=== PATIENT | female | born 1940 | race African-American/Black ===

== ENCOUNTER 2018-12-28 21:05 | Emergency (ER) | payer MEDICARE | END 2018-12-28 21:55 | disposition home or self-care (01) | LOC: NAV ERS 21:05 | DX: S41.112D Laceration without foreign body of left upper arm, subsequent encounter (principal); I25.10 Atherosclerotic heart disease of native coronary artery without angina pectoris; E11.9 Type 2 diabetes mellitus without complications; K21.9 Gastro-esophageal reflux disease without esophagitis; D63.1 Anemia in chronic kidney disease; N18.9 Chronic kidney disease, unspecified; E78.5 Hyperlipidemia, unspecified; E78.00 Pure hypercholesterolemia, unspecified; M10.9 Gout, unspecified; J44.9 Chronic obstructive pulmonary disease, unspecified; I11.0 Hypertensive heart disease with heart failure; I50.9 Heart failure, unspecified; Z79.899 Other long term (current) drug therapy; Z79.51 Long term (current) use of inhaled steroids; Z79.01 Long term (current) use of anticoagulants ==

== ENCOUNTER 2019-10-30 15:23 | Emergency (ER) | payer MEDICARE ==
[2019-10-30 16:02] LABS: #Basophils 0.1 thou/uL (0.0-0.2); #Eosinphils 0.1 thou/uL (0.0-0.7); #Lymphocytes 1.1 thou/uL (1.20-3.40); #Monocytes 0.4 thou/uL (0.11-0.59); #Neutrophils 2.8 thou/uL (1.40-6.50); %Basophils 1.7 % (0.0-1.0); %Eosinophils 3.2 % (0.0-10.0); %Lymphocytes 23.6 % (21.0-51.0); %Monocytes 9.1 % (0.0-10.0); %Neutrophils 62.5 % (42.0-75.0); Hemoglobin 10.8 g/dL (12.0-16.0); Mean Corpuscular HGB CONC 31.2 g/dL (32.0-36.0); Mean Corpuscular Hemoglobin 29.5 pg (27.0-31.0); Mean Corpuscular Volume 94.6 fL (78.0-98.0); Mean Platelet Volume 7.9 fL (7.4-10.4); Platelet Count 168 thou/uL (130-400); RBC Distribution Width 14.1 % (11.5-14.5); Red Blood Cell (RBC) Count 3.68 mill/uL (4.20-5.40); White Blood Cell (WBC) Count 4.5 thou/uL (4.8-10.8)
[2019-10-30 16:08] LABS: ALT (SGPT) 7 U/L (8-55); AST (SGOT) 13 U/L (5-34); Albumin 3.8 g/dL (3.4-4.8); Alkaline Phosphatase 81 U/L (40-110); Anion Gap 13 mmol/L (10-20); BUN (Urea Nitrogen) 30 mg/dL (9.8-20.1); Bilirubin, Total 0.3 mg/dL (0.2-1.2); Calc. Creatinine Clearance 0 mL/min (70-130); Calcium 8.9 mg/dL (7.8-10.44); Carbon Dioxide 27 mmol/L (23-31); Chloride 98 mmol/L (98-107); Estimated GFR-MDRD 12; Globulin 2.4 g/dL (2.4-3.5); Glucose 245 mg/dL (83-110); Potassium 4.4 mmol/L (3.5-5.1); Protein, Total 6.2 g/dL (6.0-8.3); Sodium 134 mmol/L (136-145)
[2019-10-30 16:26] LABS: CKMB 0.9 ng/mL (0-6.6)
[2019-10-30] MEDS ORDERED: Aspirin Chewable 81 MG TAB ONE (16:50)
[2019-10-30] MEDS ORDERED: Sodium Chloride 0.9% 500 ML ONE (16:50)
== END 2019-10-30 17:40 | disposition home or self-care (01) ==
LOC: NAV ERS 15:23
DX: E86.0 Dehydration (principal); I13.2 Hypertensive heart and chronic kidney disease with heart failure and with stage 5 chronic kidney disease, or end stage renal disease; I50.9 Heart failure, unspecified; E11.22 Type 2 diabetes mellitus with diabetic chronic kidney disease; N18.6 End stage renal disease; I25.10 Atherosclerotic heart disease of native coronary artery without angina pectoris; K21.9 Gastro-esophageal reflux disease without esophagitis; E78.5 Hyperlipidemia, unspecified; E78.00 Pure hypercholesterolemia, unspecified; M10.9 Gout, unspecified; J44.9 Chronic obstructive pulmonary disease, unspecified; Z79.4 Long term (current) use of insulin; Z79.899 Other long term (current) drug therapy
CPT/HCPCS: 80053; 82553; 84484; 85025; 93005; 96360; J7030

== ENCOUNTER 2024-06-11 05:59 | Emergency (ER) | payer MEDICARE ==
[2024-06-11] MEDS ORDERED: Acetaminophen 500 MG TAB ONE (06:35)
[2024-06-11 06:41] LABS: ALT (SGPT) 7 U/L (Less than 34); AST (SGOT) 15 U/L (11-34); Albumin 3.6 g/dL (3.1-4.5); Alkaline Phosphatase 37 U/L (40-110); Anion Gap 18 mmol/L (10-20); BUN (Urea Nitrogen) 47 mg/dL (9.8-20.1); Bilirubin, Total 0.4 mg/dL (0.3-1.2); Calc. Creatinine Clearance 0 mL/min (70-130); Calcium 9.3 mg/dL (7.8-10.44); Carbon Dioxide 26 mmol/L (23-31); Chloride 95 mmol/L (98-107); Estimated GFR 4; Globulin 2.7 g/dL (2.4-3.5); Glucose 202 mg/dL (83-110); Potassium 4.5 mmol/L (3.5-5.1); Protein, Total 6.3 g/dL (5.8-8.1); Sodium 134 mmol/L (136-145)
[2024-06-11 06:43] LABS: #Basophils 0.1 thou/uL (0.0-0.2); #Eosinophils 0.1 thou/uL (0.0-0.7); #Lymphocytes 0.7 thou/uL (1.20-3.40); #Monocytes 0.2 thou/uL (0.11-0.59); #Neutrophils 1.4 thou/uL (1.40-6.50); %Basophils 2.1 % (0.0-1.0); %Lymphocytes 30.2 % (21.0-51.0); %Monocytes 9.5 % (0.0-10.0); %Neutrophils 55.3 % (42.0-75.0); Hematocrit 37.4 % (36.0-47.0); Hemoglobin 11.2 g/dL (12.0-16.0); Mean Corpuscular HGB CONC 29.9 g/dL (32.0-36.0); Mean Corpuscular Hemoglobin 25.6 pg (27.0-31.0); Mean Corpuscular Volume 85.6 fl (78.0-98.0); Mean Platelet Volume 7.7 fL (7.4-10.4); Platelet Count 112 10x3/uL (130-400); RBC Distribution Width 15.4 % (11.5-14.5); Red Blood Cell (RBC) Count 4.37 mill/uL (4.20-5.40); White Blood Cell (WBC) Count 2.5 10x3/uL (4.8-10.8)
== END 2024-06-11 07:25 | disposition home or self-care (01) ==
LOC: NAV ERS 05:59
DX: I13.2 Hypertensive heart and chronic kidney disease with heart failure and with stage 5 chronic kidney disease, or end stage renal disease (principal); E11.22 Type 2 diabetes mellitus with diabetic chronic kidney disease; N18.6 End stage renal disease; I50.9 Heart failure, unspecified; R51.9 Headache, unspecified; J44.9 Chronic obstructive pulmonary disease, unspecified; I48.91 Unspecified atrial fibrillation; Z99.2 Dependence on renal dialysis; Z79.01 Long term (current) use of anticoagulants; Z55.6 Problems related to health literacy; Z79.899 Other long term (current) drug therapy; Z79.4 Long term (current) use of insulin
CPT/HCPCS: 71045; 80053; 85025; 93005; 94760

== ENCOUNTER 2025-03-13 11:12 | Inpatient (IN) | payer MEDICARE ==
[2025-03-13] MEDS ORDERED: Bisacodyl 10 MG SUPP PR PRN (13:22)
[2025-03-13] MEDS ORDERED: Dextrose 50% Abboject 50 ML SYRINGE SLOW IVP PRN (13:52)
[2025-03-13] MEDS ORDERED: Glucagon 1 MG/ML KIT IM PRN (13:52)
[2025-03-13] MEDS: Cholecalciferol 1,000 UNITS (25 MCG) TAB PO SCH (20:37)
[2025-03-13] MEDS: Apixaban 2.5 MG TAB PO SCH (20:37)
[2025-03-13] MEDS: Senokot S 8.6-50 MG TAB PO SCH (20:38)
[2025-03-13] MEDS: Amiodarone 200 MG TAB PO SCH (20:39)
[2025-03-13] MEDS: Multivit, Therapeutic 1 TAB PO SCH (20:39)
[2025-03-13] MEDS: Nystatin Powder 15 GM BOT TOP SCH (20:40)
[2025-03-14 05:20] LABS: #Basophils 0.3 thou/uL (0.0-0.2); #Eosinophils 0.3 thou/uL (0.0-0.7); #Lymphocytes 0.7 thou/uL (1.20-3.40); #Monocytes 0.7 thou/uL (0.11-0.59); #Neutrophils 2.9 thou/uL (1.40-6.50); %Basophils 6.0 % (0.0-1.0); %Eosinophils 6.6 % (0.0-10.0); %Lymphocytes 14.5 % (21.0-51.0); %Monocytes 13.2 % (0.0-10.0); %Neutrophils 59.7 % (42.0-75.0); Hematocrit 31.6 % (36.0-47.0); Hemoglobin 9.8 g/dL (12.0-16.0); Mean Corpuscular Hemoglobin 24.8 pg (27.0-31.0); Mean Corpuscular Volume 80.2 fl (78.0-98.0); Platelet Count 224 10x3/uL (130-400); Red Blood Cell (RBC) Count 3.94 mill/uL (4.20-5.40); White Blood Cell (WBC) Count 4.9 10x3/uL (4.8-10.8)
[2025-03-14 05:28] LABS: ALT (SGPT) 10 U/L (Less than 34); AST (SGOT) 23 U/L (11-34); Albumin 2.6 g/dL (3.1-4.5); Alkaline Phosphatase 49 U/L (40-110); Anion Gap 17 mmol/L (10-20); BUN (Urea Nitrogen) 31 mg/dL (9.8-20.1); Bilirubin, Total 0.3 mg/dL (0.3-1.2); Calc. Creatinine Clearance 10 mL/min (70-130); Calcium 8.7 mg/dL (7.8-10.44); Carbon Dioxide 26 mmol/L (23-31); Chloride 96 mmol/L (98-107); Globulin 3.3 g/dL (2.4-3.5); Glucose 120 mg/dL (83-110); Potassium 4.7 mmol/L (3.5-5.1); Sodium 134 mmol/L (136-145)
[2025-03-14] MEDS: Ezetimibe 10 MG TAB PO SCH (08:40)
[2025-03-14] MEDS: NIFEdipine XL 60 MG ER.TAB PO SCH (08:42)
[2025-03-14] MEDS: Losartan 25 MG TAB PO SCH (08:42)
[2025-03-14] MEDS: Lantus 1000 UNITS/10 ML VIAL SC SCH (08:44)
[2025-03-14] MEDS: Pantoprazole 40 MG DR.TAB PO SCH (08:44)
[2025-03-15 21:02] VITALS: BMI 33.3
[2025-03-15] MEDS: Acetaminophen 325 MG TAB PO PRN (23:22)
[2025-03-16] MEDS: FLU (Fluad Triv) 25-26 (65UP)PF 45 MCG/0.5 ML Syringe IM ONE (10:01)
[2025-03-16] MEDS: Transdermal Patch Removal TOP SCH (21:43)
[2025-03-17 03:22] VITALS: BMI 33.6
[2025-03-17] MEDS ORDERED: NIFEdipine XL 60 MG ER.TAB PO SCH (08:52)
[2025-03-17] MEDS: NIFEdipine XL 90 MG ER.TAB PO SCH (09:10)
[2025-03-18 02:01] LABS: #Basophils 0.8 thou/uL (0.0-0.2); #Eosinophils 0.2 thou/uL (0.0-0.7); #Lymphocytes 0.8 thou/uL (1.20-3.40); #Monocytes 0.7 thou/uL (0.11-0.59); #Neutrophils 3.2 thou/uL (1.40-6.50); %Basophils 13.9 % (0.0-1.0); %Eosinophils 3.6 % (0.0-10.0); %Lymphocytes 14.6 % (21.0-51.0); %Monocytes 11.9 % (0.0-10.0); %Neutrophils 56.0 % (42.0-75.0); Hematocrit 27.7 % (36.0-47.0); Hemoglobin 8.2 g/dL (12.0-16.0); Mean Corpuscular Hemoglobin 23.8 pg (27.0-31.0); Mean Corpuscular Volume 80.3 fl (78.0-98.0); Platelet Count 206 10x3/uL (130-400); Red Blood Cell (RBC) Count 3.45 mill/uL (4.20-5.40); White Blood Cell (WBC) Count 5.7 10x3/uL (4.8-10.8)
[2025-03-18] MEDS: Mag-Al Plus 1200/1200/120 MG (30 mL) UDCUP PO SCH ×2 (02:08→05:22)
[2025-03-18 02:10] LABS: ALT (SGPT) 13 U/L (Less than 34); AST (SGOT) 22 U/L (11-34); Albumin 2.6 g/dL (3.1-4.5); Alkaline Phosphatase 43 U/L (40-110); Anion Gap 15 mmol/L (10-20); BUN (Urea Nitrogen) 52 mg/dL (9.8-20.1); Bilirubin, Total 0.3 mg/dL (0.3-1.2); Calc. Creatinine Clearance 8 mL/min (70-130); Calcium 8.5 mg/dL (7.8-10.44); Carbon Dioxide 27 mmol/L (23-31); Chloride 96 mmol/L (98-107); Globulin 3.1 g/dL (2.4-3.5); Glucose 152 mg/dL (83-110); Potassium 4.1 mmol/L (3.5-5.1); Sodium 134 mmol/L (136-145); Troponin I 0.021 ng/mL (< 0.028)
[2025-03-18 05:35] LABS: Troponin I 0.027 ng/mL (< 0.028)
[2025-03-19] MEDS: Mag-Al Plus 1200/1200/120 MG (30 mL) UDCUP PO SCH (00:36)
[2025-03-19] MEDS: Floranex 1 GM Packet PO SCH (11:11)
[2025-03-19] MEDS: Melatonin 3 MG TAB PO SCH (20:41)
[2025-03-19] MEDS: Mag-Al Plus 1200/1200/120 MG (30 mL) UDCUP PO PRN (22:20)
[2025-03-21] MEDS: Sucralfate 1 GM TAB PO SCH (17:22)
[2025-03-23] MEDS: Pantoprazole 40 MG VIAL IVP SCH ×2 (01:14→10:00)
[2025-03-23 08:17] VITALS: BP 153/69; TEMP 98.2
[2025-03-23 09:03] LABS: Hematocrit 19.5 % (36.0-47.0); Hemoglobin 6.0 g/dL (12.0-16.0); Mean Corpuscular Hemoglobin 26.8 pg (27.0-31.0); Mean Corpuscular Volume 86.6 fl (78.0-98.0); Platelet Count 162 10x3/uL (130-400); Red Blood Cell (RBC) Count 2.25 mill/uL (4.20-5.40); White Blood Cell (WBC) Count 4.1 10x3/uL (4.8-10.8)
[2025-03-23 09:16] LABS: ALT (SGPT) 15 U/L (Less than 34); AST (SGOT) 23 U/L (11-34); Albumin 2.9 g/dL (3.1-4.5); Alkaline Phosphatase 43 U/L (40-110); Anion Gap 13 mmol/L (10-20); BUN (Urea Nitrogen) 29 mg/dL (9.8-20.1); Bilirubin, Total 0.4 mg/dL (0.3-1.2); Calc. Creatinine Clearance 15 mL/min (70-130); Calcium 8.3 mg/dL (7.8-10.44); Carbon Dioxide 32 mmol/L (23-31); Chloride 94 mmol/L (98-107); Globulin 2.9 g/dL (2.4-3.5); Glucose 130 mg/dL (83-110); Potassium 3.8 mmol/L (3.5-5.1); Sodium 135 mmol/L (136-145)
[2025-03-23 10:48] LABS: MDiff Complete? YES
[2025-03-23 12:34] LABS: Anisocytosis SLIGHT = 6-15 cells (100X) (0-5/hpf); Poikilocytosis SLIGHT = 6-15 cells (100X) (0-5/hpf); Schistocytes SLIGHT = 2-5 cells (100X) (0-1/hpf)
[2025-03-23] MEDS ORDERED: Pantoprazole 40 MG VIAL IVP SCH (21:00)
== END 2025-03-23 10:24 | disposition short-term general hospital (02) | DRG 56 ==
LOC: NAV ACUTE 14:45
PROVIDERS: ADMIT Student in an Organized Health Care Education/Training Program; ATTEND Student in an Organized Health Care Education/Training Program
PROC: F07Z9ZZ Gait Training/Functional Ambulation Treatment (ICD-10-PCS; principal; 2025-03-13)
DX: I69.991 Dysphagia following unspecified cerebrovascular disease (principal); N18.6 End stage renal disease; R78.81 Bacteremia; R00.1 Bradycardia, unspecified; E11.22 Type 2 diabetes mellitus with diabetic chronic kidney disease; J45.909 Unspecified asthma, uncomplicated; E11.51 Type 2 diabetes mellitus with diabetic peripheral angiopathy without gangrene; I65.23 Occlusion and stenosis of bilateral carotid arteries; Z66 Do not resuscitate; R29.711 NIHSS score 11; I25.10 Atherosclerotic heart disease of native coronary artery without angina pectoris; E11.43 Type 2 diabetes mellitus with diabetic autonomic (poly)neuropathy; K21.9 Gastro-esophageal reflux disease without esophagitis; K31.84 Gastroparesis; I10 Essential (primary) hypertension; I48.0 Paroxysmal atrial fibrillation; B96.4 Proteus (mirabilis) (morganii) as the cause of diseases classified elsewhere; M19.011 Primary osteoarthritis, right shoulder; E78.5 Hyperlipidemia, unspecified; Z99.2 Dependence on renal dialysis; Z98.890 Other specified postprocedural states; Z95.818 Presence of other cardiac implants and grafts; Z95.5 Presence of coronary angioplasty implant and graft; Z90.710 Acquired absence of both cervix and uterus
CPT/HCPCS: 36415; 36416; 71045; 80053; 83690; 84484; 85025; J0692; J1815; J2470; J7626; Q0162

== ENCOUNTER 2025-03-23 10:24 | Emergency (ER) | payer MEDICARE ==
[2025-03-23] MEDS ORDERED: Pantoprazole 40 MG VIAL ONE (10:41)
[2025-03-23] MEDS ORDERED: Mag-Al Plus 1200/1200/120 MG (30 mL) UDCUP ONE ×2 (10:41→12:59)
[2025-03-23] MEDS ORDERED: Aspirin Chewable 81 MG TAB ONE (10:41)
[2025-03-23 11:08] LABS: Troponin I 0.031 ng/mL (< 0.028)
[2025-03-23] MEDS ORDERED: Ondansetron PF 4 MG/2 ML Vial ONE (11:22)
[2025-03-23] MEDS ORDERED: Lidocaine Viscous Sol 2% 15 ml UD Cup ONE (13:00)
== END 2025-03-23 14:14 | disposition short-term general hospital (02) ==
LOC: NAV ERS 10:24
DX: K29.01 Acute gastritis with bleeding (principal); E11.22 Type 2 diabetes mellitus with diabetic chronic kidney disease; N18.9 Chronic kidney disease, unspecified; E78.5 Hyperlipidemia, unspecified; I50.9 Heart failure, unspecified; I25.10 Atherosclerotic heart disease of native coronary artery without angina pectoris; J44.9 Chronic obstructive pulmonary disease, unspecified; K21.9 Gastro-esophageal reflux disease without esophagitis; Z79.4 Long term (current) use of insulin; Z94.0 Kidney transplant status; Z79.51 Long term (current) use of inhaled steroids; Z79.01 Long term (current) use of anticoagulants; Z79.899 Other long term (current) drug therapy; Z87.891 Personal history of nicotine dependence
CPT/HCPCS: 71045; 82274; 83880; 84484; 86850; 86900; 86901; 93005; 96374; 96375; 96376; J2272; J2405; J2470

== ENCOUNTER 2025-04-02 18:09 | Inpatient (IN) | payer MEDICARE ==
[2025-04-02] MEDS ORDERED: Calcium Carbonate 500 MG ChewTAB PO PRN (18:11)
[2025-04-02] MEDS ORDERED: Dextrose 50% Abboject 50 ML SYRINGE SLOW IVP PRN (18:11)
[2025-04-02] MEDS ORDERED: Glucagon 1 MG/ML KIT IM PRN (18:11)
[2025-04-03] MEDS: Apixaban 2.5 MG TAB PO SCH (18:57)
[2025-04-03] MEDS: Senokot S 8.6-50 MG TAB PO SCH (18:59)
[2025-04-03] MEDS: Amiodarone 200 MG TAB PO SCH (19:43)
[2025-04-03] MEDS: Aspirin 81 mg Enteric Coated Tablet PO SCH (19:44)
[2025-04-03] MEDS: Losartan 25 MG TAB PO SCH (19:45)
[2025-04-03] MEDS: Pantoprazole 40 MG DR.TAB PO SCH (19:45)
[2025-04-03] MEDS: Ezetimibe 10 MG TAB PO SCH (19:45)
[2025-04-03] MEDS: Cholecalciferol 1,000 UNITS (25 MCG) TAB PO SCH (20:30)
[2025-04-03] MEDS: Lantus 1000 UNITS/10 ML VIAL SC SCH (20:30)
[2025-04-04 06:06] LABS: ALT (SGPT) 10 U/L (Less than 34); AST (SGOT) 22 U/L (11-34); Albumin 2.8 g/dL (3.1-4.5); Alkaline Phosphatase 59 U/L (40-110); Anion Gap 13 mmol/L (10-20); BUN (Urea Nitrogen) 24 mg/dL (9.8-20.1); Bilirubin, Total 0.5 mg/dL (0.3-1.2); Calc. Creatinine Clearance 11 mL/min (70-130); Calcium 8.2 mg/dL (7.8-10.44); Carbon Dioxide 28 mmol/L (23-31); Chloride 101 mmol/L (98-107); Globulin 2.7 g/dL (2.4-3.5); Glucose 130 mg/dL (83-110); Potassium 4.3 mmol/L (3.5-5.1); Sodium 138 mmol/L (136-145)
[2025-04-04 06:37] LABS: Hematocrit 28.3 % (36.0-47.0); Hemoglobin 9.8 g/dL (12.0-16.0); MDiff Complete? YES; Mean Corpuscular Hemoglobin 30.1 pg (27.0-31.0); Mean Corpuscular Volume 86.7 fl (78.0-98.0); Platelet Adequacy Comment Appears Adequate; Platelet Count 197 10x3/uL (130-400); Red Blood Cell (RBC) Count 3.27 mill/uL (4.20-5.40); White Blood Cell (WBC) Count 4.2 10x3/uL (4.8-10.8)
[2025-04-04] MEDS: NIFEdipine XL 90 MG ER.TAB PO SCH (08:37)
[2025-04-04 16:33] VITALS: BMI 34.9
[2025-04-05] MEDS: Benzonatate 100 MG CAP PO PRN (14:37)
[2025-04-07] MEDS: Acetaminophen 325 MG TAB PO PRN (05:18)
[2025-04-07 05:53] LABS: Hematocrit 30.6 % (36.0-47.0); Hemoglobin 10.7 g/dL (12.0-16.0); Mean Corpuscular Hemoglobin 31.0 pg (27.0-31.0); Mean Corpuscular Volume 89.0 fl (78.0-98.0); Platelet Count 185 10x3/uL (130-400); Red Blood Cell (RBC) Count 3.44 mill/uL (4.20-5.40); White Blood Cell (WBC) Count 3.9 10x3/uL (4.8-10.8)
[2025-04-07 06:18] LABS: Platelet Adequacy Comment Appears Adequate
[2025-04-11] MEDS: Losartan 25 MG TAB PO SCH (08:59)
[2025-04-12 04:56] VITALS: BMI 33.7
[2025-04-13 07:52] VITALS: BP 150/55
[2025-04-13 08:12] VITALS: TEMP 98
== END 2025-04-13 10:50 | disposition home health service (06) | DRG 945 ==
LOC: NAV ACUTE 04-03 16:30
PROVIDERS: ADMIT Student in an Organized Health Care Education/Training Program; ATTEND Student in an Organized Health Care Education/Training Program
PROC: F07Z9ZZ Gait Training/Functional Ambulation Treatment (ICD-10-PCS; principal; 2025-04-03)
DX: R53.81 Other malaise (principal); I50.23 Acute on chronic systolic (congestive) heart failure; I63.89 Other cerebral infarction; N18.6 End stage renal disease; K92.2 Gastrointestinal hemorrhage, unspecified; I50.32 Chronic diastolic (congestive) heart failure; I13.2 Hypertensive heart and chronic kidney disease with heart failure and with stage 5 chronic kidney disease, or end stage renal disease; I25.10 Atherosclerotic heart disease of native coronary artery without angina pectoris; E78.5 Hyperlipidemia, unspecified; J45.909 Unspecified asthma, uncomplicated; I48.0 Paroxysmal atrial fibrillation; D63.1 Anemia in chronic kidney disease; E11.22 Type 2 diabetes mellitus with diabetic chronic kidney disease; I65.21 Occlusion and stenosis of right carotid artery; E11.65 Type 2 diabetes mellitus with hyperglycemia; M19.011 Primary osteoarthritis, right shoulder; Z79.899 Other long term (current) drug therapy
CPT/HCPCS: 36415; 36416; 71045; 80053; 85025; 94640; J1815; J7626